=== PATIENT | male | born 1945 | race Native Hawaiian/Other Pacific Islander ===

== ENCOUNTER 2020-05-04 17:38 | Outpatient (CLI) | payer OTHER, MEDICARE ==
[2020-05-04 18:31] LABS: PLATELET COUNT 203 K/uL (142-355)
[2020-05-04 18:43] LABS: POTASSIUM 4.7 mmol/L (3.6-5.2)
== END 2020-05-04 22:39 | disposition home or self-care (01) ==
LOC: EDBD 17:38 → LAB 17:38
PROVIDERS: Nurse Practitioner Family
DX: E11.9 Type 2 diabetes mellitus without complications (principal); E78.49 Other hyperlipidemia; G47.00 Insomnia, unspecified; E55.9 Vitamin D deficiency, unspecified; E53.9 Vitamin B deficiency, unspecified; R33.9 Retention of urine, unspecified; R53.83 Other fatigue; R53.81 Other malaise; I11.9 Hypertensive heart disease without heart failure
CPT/HCPCS: 80053; 80061; 82306; 82607; 83036; 84153; 84403; 84439; 84443; 85027